=== PATIENT | female | born 1990 | race Caucasian/White ===

== ENCOUNTER 2020-11-27 19:37 | Emergency (ER) | payer OTHER ==
[~2020-11-27] VITALS: Ht 170.2 cm; Wt 72.6 kg
[~2020-11-27 19:37] MED LIST: HYDROXYZINE HCL10 M1; ZOFRAN ODT4 MG PO
[2020-11-27 19:51] VITALS: BP 141/85
[2020-11-27] MEDS ORDERED: LAMOTRIGINE250 MG PO (19:56)
[2020-11-27] MEDS ORDERED: CLONAZEPAM 0.50.5 M1 PO (19:56)
[2020-11-27] MEDS ORDERED: SERTRALINE HCL100 MG PO (19:56)
[2020-11-27 20:06] LABS: AMP/METHAMP Negative (Negative); BARBITURATES Negative (Negative); BENZODIAZEPINES Negative (Negative); COCAINE Negative (Negative); METHADONE Negative (Negative); OPIATES Negative (Negative); PCP Negative (Negative); THC Negative (Negative)
== END 2020-11-27 20:34 | disposition home or self-care (01) ==
LOC: M.ERS 19:37
PROVIDERS: Physician Assistant
DX: Z02.83 Encounter for blood-alcohol and blood-drug test (principal); F41.9 Anxiety disorder, unspecified; Z79.899 Other long term (current) drug therapy